=== PATIENT | female | born 1975 | race Caucasian/White ===

== ENCOUNTER 2017-02-15 11:19 | Emergency (ER) | payer MEDICAID ==
[~2017-02-15] VITALS: Ht 160 cm; Wt 67.1 kg
[2017-02-15 11:51] VITALS: BP 126/71
--- NOTE | 2017-02-15 12:20 | NUR ---
PT PRESENTS TO ER W/C/O NECK AND LEFT EYE PAIN SINCE LAST NOC. DENIES V/D; SKIN IS PINK/WARM/DRY; AAOX4 WITH EVEN AND STEADY GAIT; LUNGS CLEAR BL; HR EVEN AND REGULAR; PT DENIES ANY FEVER, CP, SOB, OR COUGH AT THIS TIME; PATIENT STATES PAIN OF 9/10 AT THIS TIME; VSS; PATIENT POSITIONED FOR COMFORT; HOB ELEVATED; BEDRAILS UP X2; BED DOWN. ER MD MADE AWARE OF PT STATUS.
--- NOTE | 2017-02-15 12:22 | NUR ---
Patient ambulated to bed 4 with family. RN evaluating patient at bedside.
--- NOTE | 2017-02-15 12:35 | NUR ---
Dr. Pinto evaluating patient at bedside.
[2017-02-15] MEDS ORDERED: KETOROLAC 60 MG/2 ML VIAL IM ONE (12:55)
[2017-02-15 14:36] VITALS: BP 108/61
--- NOTE | 2017-02-15 14:36 | NUR ---
Patient discharged with v/s stable. Written and verbal after care instructions given and explained. Patient alert, oriented and verbalized understanding of instructions. Ambulatory with steady gait. All questions addressed prior to discharge. ID band removed. Patient advised to follow up with PMD. Rx of FLEXERIL given. Patient educated on indication of medication including possible reaction and side effects. Opportunity to ask questions provided and answered.
== END 2017-02-15 14:36 | disposition home or self-care (01) ==
LOC: MED 11:19
DX: R25.2 Cramp and spasm (principal); M54.2 Cervicalgia
CPT/HCPCS: 72040; 96372; 99284; J1885